=== PATIENT | male | born 1955 | race Caucasian/White ===

== ENCOUNTER → 2021-08-19 11:22 | Outpatient (BNVA) | payer MEDICARE, BC, SELFPAY | PROVIDERS: Family Provider Family Medicine; PCP Family Medicine; Visit Provider Family Medicine | DX: Z00.00 Encounter for general adult medical examination without abnormal findings (principal); E03.9 Hypothyroidism, unspecified; E53.9 Vitamin B deficiency, unspecified | CPT/HCPCS: 80053; 80061; 82607; 84443 ==

== ENCOUNTER → 2022-02-04 08:28 | Outpatient (BNVA) | payer MEDICARE, BC, SELFPAY | PROVIDERS: Family Provider Family Medicine; PCP Family Medicine; Visit Provider Family Medicine | DX: E03.9 Hypothyroidism, unspecified (principal); E53.8 Deficiency of other specified B group vitamins | CPT/HCPCS: 80053; 80061; 82607; 84443 ==

== ENCOUNTER → 2023-07-30 09:13 | Outpatient (BNVA) | payer MEDICARE, BC, SELFPAY | PROVIDERS: Family Provider Family Medicine; PCP Family Medicine; Visit Provider Family Medicine | DX: Z13.6 Encounter for screening for cardiovascular disorders (principal); E03.9 Hypothyroidism, unspecified; E87.1 Hypo-osmolality and hyponatremia | CPT/HCPCS: 80053; 80061; 82607; 84443 ==